=== PATIENT | male | born 1945 | race American Indian/Alaskan Native ===

== ENCOUNTER 2016-10-11 15:35 | Outpatient (CLI) | payer MEDICARE, OTHER ==
--- NOTE | 2016-10-12 09:48 | Magnetic Resonance Report ---
MR LOWER EXTREMITY JOINT LEFT WITHOUT CONTRAST HISTORY: Left knee pain. TECHNIQUE: Multisequence, multiplanar MRI was performed through the left knee. COMPARISON: None. FINDINGS: There is a moderate joint effusion which extends to the suprapatellar bursa. No popliteal cyst. Advanced, severe osteoarthritic changes are identified in the medial compartment. There appears to be complete or near-complete cartilage loss over large areas of the medial femoral condyle and medial tibial plateau. There is articular surface sclerosis, small subchondral cysts and osteophytosis. Subchondral edema is also noted in the medial compartment suggesting mild bone contusions. Mild cartilage loss is noted in the lateral compartment and patellofemoral space. The body and posterior horn of the medial meniscus are severely abnormal and presumably fragmented. The lateral meniscus is intact. The PCL is intact but appears thickened with mild increased signal suggesting a PCL strain. The ACL, MCL, LCL complex and extensor complex are intact. There is nonspecific subcutaneous edema in the anterior and medial soft tissues. IMPRESSION: Osteoarthritic changes. The medial compartment is by far the most affected compartment. There is essentially complete cartilage loss in the medial compartment with chronic findings as described. Complex, fragmented tear in the body and posterior horn of the medial meniscus. Joint effusion. Possible PCL strain.
== END 2016-10-11 15:36 | disposition home or self-care (01) ==
LOC: MRI 15:35
PROVIDERS: ATTEND General Practice
DX: M17.12 Unilateral primary osteoarthritis, left knee (principal); M25.862 Other specified joint disorders, left knee
CPT/HCPCS: 73721